=== PATIENT | female | born 1990 | race American Indian/Alaskan Native ===

== ENCOUNTER 2018-11-11 05:58 | Day surgery (SDC) | payer BC, OTHER ==
[~2018-11-11 05:58] MED LIST: ANCEF/STERILE WATER 2 GM/20 ML 2 GM/20 ML SYRINGE IV NR
[2018-11-11] MEDS ORDERED: LACTATED RINGERS 1,000 ML IV SCH ×2 (06:00→14:00)
[2018-11-11] MEDS ORDERED: VERSED IV NR (06:00)
[2018-11-11] MEDS ORDERED: ADRENALINE P/F ONE (06:31)
[2018-11-11] MEDS ORDERED: XYLOCAINE 1% 20 mL ONE (06:31)
[2018-11-11] MEDS ORDERED: NACL 0.9% 1000 ML 1,000 ML ONE (06:31)
[2018-11-11] MEDS ORDERED: XYLOCAINE 1%/ EPI 1:100,000 INFILTRATI ONE ×2 (06:31→08:27)
--- NOTE | 2018-11-11 07:10 | Anesthesia Consultation ---
Anesthesia Consult and Med Hx Date of service: 11/11/18 - Airway Anesthetic Teeth Evaluation: Good ROM Head & Neck: Adequate Mental/Hyoid Distance: Adequate Mallampati Class: Class II Intubation Access Assessment: Good - Pre-Operative Health Status ASA Pre-Surgery Classification: ASA2 Proposed Anesthetic Plan: General - Pre-Anesthesia Comment Pre-Anesthesia Comments: Has piercings on each cheek. She will not remove them and discussed risks of injury with her. She accepts - Pulmonary Hx Smoking: Yes (SINCE AGE 23; QUIT RECENTLY IN JULY 2018) - Central Nervous System Hx Psychiatric Problems: Yes - Endocrine Hx Thyroid Disease: Yes - Other Systems Hx Alcohol Use: Yes
[2018-11-11] MEDS ORDERED: ZOFRAN IV PRN ×2 (07:11→13:05)
--- NOTE | 2018-11-11 07:11 | Anesthesia Day of Surgery ---
Anesthesia Day of Surgery - Day of Surgery Patient Examined: Yes Patient H&P Reviewed: Yes Patient is NPO: Yes
[2018-11-11] MEDS ORDERED: TYLENOL PO NR (07:12)
[2018-11-11] MEDS ORDERED: SUBLIMAZE ONE ×2 (07:40→10:39)
[2018-11-11] MEDS ORDERED: DIPRIVAN 10 MG/ML IV ONE (07:41)
[2018-11-11] MEDS ORDERED: XYLOCAINE MPF 2% ONE (07:41)
[2018-11-11] MEDS ORDERED: ZEMURON IV ONE (07:42)
[2018-11-11] MEDS ORDERED: DECADRON ONE (07:51)
[2018-11-11] MEDS ORDERED: ZOFRAN ONE (07:54)
[2018-11-11] MEDS ORDERED: NEURONTIN PO NR (08:00)
[2018-11-11] MEDS ORDERED: XYLOCAINE 1% 20 mL INFILTRATI ONE (08:25)
[2018-11-11] MEDS ORDERED: ADRENALINE P/F IV ONE (08:26)
[2018-11-11] MEDS ORDERED: NACL 0.9% IR ONE (08:27)
[2018-11-11] MEDS ORDERED: LACTATED RINGERS 1,000 ML ONE (09:17)
[2018-11-11] MEDS ORDERED: NACL 0.9% 1000 ML IR ONE (09:55)
[2018-11-11] MEDS: SUBLIMAZE IV PRN ×2 (13:00→13:39)
--- NOTE | 2018-11-11 13:02 | Operative Report ---
Operative Report Operative Report: Preoperative Diagnosis: Symptomatic bilateral macromastia Post Operative Diagnosis: Same Procedure: Bilateral breast reduction Surgeon: Dr. Jessica High [employer] Consultant: ISIDRO Durant Specimens: Right and left breast tissue, excised 960 and 860g EBL: 50cc Procedure: After review of pertinent history and physical exam findings the patient was brought into the operating room and placed supine on the OR table. After induction of adequate general anesthesia the patient's chest was prepped and draped in the usual sterile surgical fashion. To begin, lópez were refreshed and measurements double checked and we reduced the right breast as follows: A 9cm inferior pedicle was outlined and de-epithelialized save the nipple and areola complex, which was measured out using a 4.5cm diameter and left completely attached to the inferior pedicle. After this, following a Coelho pattern, skin incisions were made to elevate breast flaps superiorly and excise excess tissue on the medial and lateral aspect of the pedicle. Hemostasis was maintained with electrocautery. Saline solution was then used to irrigate the breast tissue and, satisfied with hemostasis and volume, we began to a 3-layered closure using 2-0 Monocryl and 3-0 Monoderm sutures. The same procedure was performed on the left side, with tissue re-arrangement and excision based on an inferior pedicle being performed to preserve the nipple areolar complex and as much breast tissue as possible for symmetry. A total of 960g was removed from the right breast; 860g was removed from the left. Once all incisions were closed, they were sealed with Dermabond and dressed with Telfa and tegaderm dressings. This was followed by placement of a surgical bra. The patient was then awakened from general anesthesia and transferred to PACU in stable condition. There were no complications. All sponge needle and instrument counts were correct at the end of the case.
[2018-11-11] MEDS ORDERED: NORCO 7.5/325 PO PRN (13:05)
--- NOTE | 2018-11-11 14:17 | Post Anesthesia Evaluation ---
- Post Anesthesia Evaluation Patient Participated: Yes Airway Patent: Yes Stable Respiratory Function: Yes Nausea/Vomiting: No Temp > 96.8F: Yes Pain Manageable: Yes Adequeate Hydration: Yes Anesthesia Complications: No Block Receding Appropriately: Not Applicable Patient on Ventilator: No
[2018-11-11 14:34] VITALS: BP 129/85
== END 2018-11-11 15:25 | disposition home or self-care (01) ==
LOC: OR 05:58
PROVIDERS: ATTEND Plastic Surgery
DX: N62 Hypertrophy of breast (principal); N64.89 Other specified disorders of breast; F41.9 Anxiety disorder, unspecified; Z79.899 Other long term (current) drug therapy; Z87.891 Personal history of nicotine dependence; Z91.018 Allergy to other foods; Z98.891 History of uterine scar from previous surgery; Z72.89 Other problems related to lifestyle; Z98.890 Other specified postprocedural states
CPT/HCPCS: 19318; 81025; 88305; J0171; J0690; J1100; J2250; J2405; J2704; J3010; J7030; J7120